=== PATIENT | female | born 1940 | race Caucasian/White ===

== ENCOUNTER 2016-06-16 09:11 | Day surgery (SDC) | payer MEDICARE ==
[~2016-06-16 09:11] MED LIST: CELEXA20 M2 PO; COREG3.125 M1 PO; LIPITOR40 M1 PO; LOSARTAN-HCTZ1 EAC6 PO; PRILOSEC OTC20 M1 PO; URISTAT PO; VITAMIN D250000 UNI1 PO
[2016-06-16 09:55] LABS: BASO % 0.9 % (0-2); BASO ABSOLUTE COUNT 0.1 tho/cmm (0.0-0.2); EOS % 3.5 % (0-7); EOSINOPHIL ABSOLUTE COUNT 0.2 tho/cmm (0.0-0.7); HCT-HEMATOCRIT 34.9 % (34.0-49.0); HGB-HEMOGLOBIN 11.3 gm/dl (12.0-15.5); IMMATURE GRANULOCYTES ABSOLUTE 0.01 tho/cmm (0-0.03); IMMATURE GRANULOCYTES PERCENT 0.1 % (0-0.3); LYMPH % 29.3 % (20-45); MCH (MEAN CORPUSCULAR HGB) 32.6 pg (28.0-32.0); MCHC MEAN CORPUSCULAR HGB CONC 32.4 % (32.0-36.0); MCV (MEAN CELL VOLUME) 100.6 fl (82.0-96.0); MEAN PLATELET VOLUME 10.4 cmc (9.4-12.4); MONO % 9.1 % (0-12); MONOCYTE ABSOLUTE COUNT 0.6 tho/cmm (0.0-1.2); NEUTROPHILS % 57.1 % (40-80); PLATELET COUNT 136 tho/cmm (150-450); RED BLOOD COUNT 3.47 mil/cmm (4.00-5.20); RED CELL DISTRIBUTION WIDTH 14.4 % (12.4-16.4); WHITE BLOOD COUNT 6.9 tho/cmm (4.0-10.0)
[2016-06-16 10:18] LABS: ANION GAP 10 mmol/L (0-20); BLOOD UREA NITROGEN 16 mg/dl (6-24); CALCIUM 8.9 mg/dl (8.5-10.5); CARBON DIOXIDE-VENOUS 27 mmol/L (22-32); CHLORIDE 112 mmol/l (96-110); CREATININE 0.92 mg/dl (0.50-1.10); GLUCOSE 119 mg/dL (70-110); POTASSIUM 3.8 mmol/L (3.7-5.1); SODIUM 145 mmol/L (135-145); eGFR VALUE FOR BLACK 72 mL/Min
[2016-06-16 11:05] LABS: URINE APPEARANCE Y; URINE BILIRUBIN MODERATE (NEG); URINE BLOOD LARGE (NEG); URINE COLOR DARK YELLOW; URINE GLUCOSE (UA) NEGATIVE (NEG); URINE KETONE NEGATIVE (NEG); URINE LEUKOCYTE ESTERASE POSITIVE (NEG); URINE NITRITE POSITIVE (NEG); URINE PH 6.5 (5.0-8.0); URINE PROTEIN MODERATE (NEG); URINE SPECIFIC GRAVITY 1.015 (1.003-1.030)
[2016-06-16 11:29] LABS: URINE EPITHELIAL CELLS 30-45 /[HPF] (0-10)
[2016-06-16 11:30] LABS: URINE RBC 20-25 /[HPF] (0-5)
[2016-06-16 11:31] LABS: URINE BACTERIA 1+
[2016-08-05] MEDS ORDERED: TYLENOL325 M2 PO (12:55)
== END 2016-06-16 16:28 ==
LOC: SRG 09:11 → SHSB 09:19 → ORW 11:05 → PACU 12:30 → SHSB 13:00
PROVIDERS: Urology
PROC: 0T768DZ Dilation of Right Ureter with Intraluminal Device, Via Natural or Artificial Opening Endoscopic (ICD-10-PCS; principal; 2016-06-16)
PROC: 0TF3XZZ Fragmentation in Right Kidney Pelvis, External Approach (ICD-10-PCS; 2016-06-16)
DX: N20.0 Calculus of kidney (principal); I25.10 Atherosclerotic heart disease of native coronary artery without angina pectoris; I10 Essential (primary) hypertension; F32.9 Major depressive disorder, single episode, unspecified; K21.9 Gastro-esophageal reflux disease without esophagitis; Z98.890 Other specified postprocedural states
CPT/HCPCS: C1726; C2617; J1956

== ENCOUNTER 2016-08-06 09:19 | Day surgery (SDC) | payer MEDICARE ==
[~2016-08-06 09:19] MED LIST changes: +TYLENOL325 M2 PO
== END 2016-08-06 15:25 ==
LOC: SHSB 09:19 → ORE 11:56 → PACU 13:16 → SHSB 14:05
PROC: 0T778DZ Dilation of Left Ureter with Intraluminal Device, Via Natural or Artificial Opening Endoscopic (ICD-10-PCS; principal; 2016-08-06)
PROC: 0TF4XZZ Fragmentation in Left Kidney Pelvis, External Approach (ICD-10-PCS; 2016-08-06)
DX: N20.0 Calculus of kidney (principal); I10 Essential (primary) hypertension; I25.10 Atherosclerotic heart disease of native coronary artery without angina pectoris; E78.00 Pure hypercholesterolemia, unspecified; E55.9 Vitamin D deficiency, unspecified; Z98.890 Other specified postprocedural states; Z79.899 Other long term (current) drug therapy; Z90.710 Acquired absence of both cervix and uterus; F32.9 Major depressive disorder, single episode, unspecified
CPT/HCPCS: C1769; C2617; J1100; J1956